=== PATIENT | male | born 1990 | race Caucasian/White ===

== ENCOUNTER → 2024-12-23 | Outpatient (CLI) | payer OTHER | LOC: M PLAIMG 06:40 | PROVIDERS: ATTEND Chiropractor | DX: M62.830 Muscle spasm of back (principal); M99.03 Segmental and somatic dysfunction of lumbar region ==

== ENCOUNTER → 2025-01-17 | Outpatient (CLI) | payer OTHER | LOC: M PLAIMG 07:16 | PROVIDERS: ATTEND Chiropractor | DX: M54.13 Radiculopathy, cervicothoracic region (principal) ==